=== PATIENT | male | born 1950 | race Caucasian/White ===

== ENCOUNTER 2019-10-30 09:16 | Emergency (ER) | payer MEDICARE, OTHER ==
[~2019-10-30] VITALS: Ht 189.2 cm; Wt 104.7 kg
--- NOTE | 2019-10-30 09:53 | PHYS DOC ---
Past History Past Medical History: A-Fib, CHF Smoking: Non-smoker Adult General Chief Complaint Chief Complaint: MECHANICAL FALL HPI HPI Patient is a 69-year-old male who presents to the emergency department for evaluation. He states he slipped in the shower this morning, and fell, primarily injuring his right forearm where he has some skin tears. He also has a skin tear on the dorsum of his right hand. He denies hitting his head, but does have some generalized neck pain and back discomfort. He denies any hip or lower extremity pain and is able to flex and extend his hips. He denies feeling dizzy or lightheaded prior to the fall. He does take Eliquis for history of atrial fibrillation. He normally walks with a walker, and uses a wheelchair for ambulation. He has no formal diagnosis of Parkinson's disease but suspects he might have it. Patient states his tetanus is up-to-date. Patient also states that he was bitten by his cat a few days ago in his right elbow area, in the area of his skin tears today and has had some soreness and pain.. Review of Systems Review of Systems Constitutional: Denies fever or chills [] Eyes: Denies change in visual acuity, redness, or eye pain [] HENT: Denies nasal congestion or sore throat [] Respiratory: Denies cough or shortness of breath [] Cardiovascular:The patient denies any shortness of breath, chest pain, palpitations, or orthopnea [] GI: Denies abdominal pain, nausea, vomiting, bloody stools or diarrhea [] : Denies dysuria or hematuria [] Musculoskeletal: Denies joint pain [] Integument: Denies rash or skin lesions [] Neurologic: Denies headache, focal weakness or sensory changes [] Endocrine: Denies polyuria or polydipsia [] All other systems were reviewed and found to be within normal limits, except as documented in this note. Physical Exam Physical Exam PHYSICAL EXAM: CONSTITUTIONAL: Well developed, well nourished HEAD: normocephalic, atraumatic EENT: PERRL, EOMI. Conjunctivae normal color, sclerae non-icteric; moist mucous membranes. NECK: Supple, there is mild diffuse tenderness to palpation of the cervical spine although range of motion is full. LUNGS: Lungs CTA, breathing even and unlabored. Normal air movement. HEART: Irregularly irregular rhythm, no murmur CHEST: No deformity; non-tender ABDOMEN: The abdomen is soft, and non-tender, no masses or bruits. EXTREM: There is tenderness to palpation and mild soft tissue swelling noted in the soft tissues of the proximal right forearm, near the elbow. There is some bony tenderness to palpation in this area. There is no warmth or erythema. There are several superficial skin tears present. There is also a skin tear on the dorsum of the right hand with some soft tissue swelling and tenderness to palpation. There is tenderness to palpation of the posterior aspect of the left calf, focally, in the area of a small hematoma, the remainder of the soft tissu es of the calf are nontender. Hips and pelvis are nontender with normal range of motion in the hips bilaterally. All extremities demonstrate Normal ROM, Normal pulses palpable in all extremities. There is no pedal edema. SKIN: No rash; no diaphoresis NEURO: Alert; normal speech and cognition; CN's grossly intact; strength grossly intact without focal deficit. There is cogwheel rigidity in the upper extremities. There is a flat facial expression, and an occasional mild tremor. BACK: No CVA TTP. There is mild tenderness to palpation to the mid and lower thoracic spine and lumbar spine. There is no step off or crepitus. EKG EKG [] Radiology/Procedures Radiology/Procedures PROCEDURE: CT HEAD AND CERVICAL SPINE WO CT HEAD AND CERVICAL SPINE WO Date: 10/30/2019 9:39 AM Clinical Indication: Fall, pain Comparison: None. Technique: 5 mm axial tomographic images were obtained of the head without contrast. These were viewed on brain and bone windows. Noncontrast CT of the cervical spine was performed. Sagittal and coronal reformats were performed and evaluated. One or more of the following dose reduction techniques were utilized: Automated exposure control (AEC), Adjustment of mA and/or kV according to patient size, Use of iterative reconstruction technique such as ASiR, CT scan done according to ALARA and image gently/image wisely HEAD FINDINGS: Mild generalized cerebral and cerebellar volume loss. Mild nonspecific periventricular hypoattenuation, most commonly seen with chronic small vessel ischemic disease. No intra- or extra-axial mass or fluid collection. No acute hemorrhage. The ventricles are normal in size, shape, and morphology. The toro-white matter junction is normal. The basilar cisterns are patent. Mild paranasal sinus mucosal thickening. The visualized portions of the orbits and globes are normal. The mastoid air cells are clear. No aggressive osseous lesion or fracture. CERVICAL SPINE FINDINGS: The cervical spine is normally aligned. No acute fracture. No aggressive lytic or blastic osseous lesions. Moderate multilevel degenerative disc space height loss. Multilevel mild and moderate spinal canal stenosis secondary to disc protrusions and marginal osteophytes. Multilevel mild and moderate neuroforaminal narrowing secondary to uncovertebral arthrosis. Multilevel mild and moderate facet arthrosis. The thyroid gland is normal. No cervical lymphadenopathy. The visualized aerodigestive tract is normal. The visualized portions of the lungs are clear. IMPRESSION: 1. No acute intracranial process. 2. No acute cervical spine fracture.[] PROCEDURE: HAND RIGHT 3V PROCEDURE: LUMBAR SPINE 2-3V, HAND RIGHT 3V, THORACIC SPINE 3V, ELBOW RIGHT 3V STUDY DATE: 10/30/2019 CLINICAL INDICATION / HISTORY: Acute upper back pain after a fall.. TECHNIQUE: Frontal and lateral views of the thoracic spine were obtained. A swimmer's lateral view was also obtained. COMPARISON: CT C-spine without IV contrast, obtained the same day. FINDINGS: Normal thoracic spinal alignment. There is mild loss of normal kyphosis with multilevel flowing osteophytes throughout the thoracic spine. Subtle anterior loss of height at T12 is present, age indeterminate. No fracture or malalignment is apparent. Soft tissues show pacemaker leads and calcified hilar lymph nodes. IMPRESSION: Age-indeterminate mild anterior loss of height at T12, potentially representing an acute anterior wedge compression fracture without findings of instability. Otherwise no evidence of fracture or subluxation in the thoracic spine. PROCEDURE: LUMBAR SPINE 2-3V, HAND RIGHT 3V, THORACIC SPINE 3V, ELBOW RIGHT 3V STUDY DATE: 10/30/2019 CLINICAL INDICATION / HISTORY: Acute lower back pain after a fall.. TECHNIQUE: 3 views of the lumbar spine COMPARISON: T-spine x-rays same day FINDINGS: Five lumbar segments are identified. Lumbar vertebral bodies are normal in height and alignment. Disc degenerative change at multiple levels is evident, most conspicuous at the lumbosacral junction. Bulky facet hypertrophic changes also present, likely resulting in moderate degrees of narrowing in the neural foramina at L3-L4 through L5-S1.. Visualized pedicles are intact.. IMPRESSION: No acute osseous abnormality shown in the lumbar spine by x-ray. PROCEDURE: LUMBAR SPINE 2-3V, HAND RIGHT 3V, THORACIC SPINE 3V, ELBOW RIGHT 3V STUDY DATE: 10/30/2019 CLINICAL INDICATION / HISTORY: Acute right hand pain after a fall.. TECHNIQUE: PA, lateral and oblique views of the right hand. COMPARISON: None FINDINGS: No fracture or dislocation is identified. The bone density is mildly demineralized.. The joint spaces are mildly narrowed and endplate osteophytic spurs are present most conspicuously in the interphalangeal joints. There are no erosions to suggest an inflammatory arthropathy. The soft tissues are unremarkable. IMPRESSION: Degenerative changes in the right hand with no acute osseous abnormality noted. PROCEDURE: LUMBAR SPINE 2-3V, HAND RIGHT 3V, THORACIC SPINE 3V, ELBOW RIGHT 3V STUDY DATE: 10/30/2019 CLINICAL INDICATION / HISTORY: Acute right elbow pain after a fall.. TECHNIQUE: Right Elbow 3 views COMPARISON: None FINDINGS: 3 views of the right elbow demonstrate a lucency over the medial epicondyle of uncertain significance. This could represent remote sequela of previous injury as no significant soft tissue swelling is identified. Otherwise there is no evidence of fracture, subluxation, or dislocation. Soft tissues unremarkable. IMPRESSION: No definite acute osseous abnormality in the right elbow with possible old fracture of the medial condyle noted. Correlate with the clinical exam and consider additional imaging such as with CT if clinically warranted. Course & Med Decision Making Course & Med Decision Making Pertinent Imaging studies reviewed. (See chart for details) []11:15 AM: The patient's condition remains stable. His gait is baseline at this time. He will be given antibiotics, Doxy and Flagyl, due to his penicillin allergy, to treat his Eye. I discussed wound care, the need for close PCP follow-up, and return precautions. On repeat exam the patient has no tenderness to palpation over the medial humeral condyle, is tenderness to palpation is mostly in the area of his wounds and cat bite on his proximal forearm. I discussed the importance of close PCP follow-up, as well as outpatient urology follow-up, as I suspect the patient has undiagnosed parkinsonism. Dragon Disclaimer Dragon Disclaimer This electronic medical record was generated, in whole or in part, using a voice recognition dictation system. Departure Departure: Impression: Primary Impression: Accidental fall Additional Impressions: Compression fracture Cat bite Skin tear Disposition: 01 HOME, SELF-CARE Condition: STABLE Patient Instructions: Animal Bite, Back, Compression Fracture, Fall Prevention and Home Safety, Parkinson's Disease, Skin Tear Care Scripts Metronidazole (FLAGYL) 500 Mg Tablet 1 TAB PO TID for p, #30 TAB Prov: MATHIEU VILLASENOR MD 10/30/19 Doxycycline Hyclate (DOXYCYCLINE HYCLATE) 100 Mg Capsule 1 CAP PO BID for -, #20 CAP Prov: MATHIEU VILLASENOR MD 10/30/19 Problem Qualifiers MATHIEU VILLASENOR MD Oct 30, 2019 09:53
[2019-10-30] MEDS ORDERED: BACITRACIN ZINC TOPICAL OINT PACKET. TP ONE (10:00)
[2019-10-30] MEDS ORDERED: HYDROcodone/APAP 5/325MG 1 TAB TABLET PO ONE (10:30)
--- NOTE | 2019-10-30 10:42 | RAD ---
CT HEAD AND CERVICAL SPINE WO Date: 10/30/2019 9:39 AM Clinical Indication: Fall, pain Comparison: None. Technique: 5 mm axial tomographic images were obtained of the head without contrast. These were viewed on brain and bone windows. Noncontrast CT of the cervical spine was performed. Sagittal and coronal reformats were performed and evaluated. One or more of the following dose reduction techniques were utilized: Automated exposure control (AEC), Adjustment of mA and/or kV according to patient size, Use of iterative reconstruction technique such as ASiR, CT scan done according to ALARA and image gently/image wisely HEAD FINDINGS: Mild generalized cerebral and cerebellar volume loss. Mild nonspecific periventricular hypoattenuation, most commonly seen with chronic small vessel ischemic disease. No intra- or extra-axial mass or fluid collection. No acute hemorrhage. The ventricles are normal in size, shape, and morphology. The toro-white matter junction is normal. The basilar cisterns are patent. Mild paranasal sinus mucosal thickening. The visualized portions of the orbits and globes are normal. The mastoid air cells are clear. No aggressive osseous lesion or fracture. CERVICAL SPINE FINDINGS: The cervical spine is normally aligned. No acute fracture. No aggressive lytic or blastic osseous lesions. Moderate multilevel degenerative disc space height loss. Multilevel mild and moderate spinal canal stenosis secondary to disc protrusions and marginal osteophytes. Multilevel mild and moderate neuroforaminal narrowing secondary to uncovertebral arthrosis. Multilevel mild and moderate facet arthrosis. The thyroid gland is normal. No cervical lymphadenopathy. The visualized aerodigestive tract is normal. The visualized portions of the lungs are clear. IMPRESSION: 1. No acute intracranial process. 2. No acute cervical spine fracture. Electronically signed by: Dustin Hunter MD (10/30/2019 10:39 AM) [id number]
--- NOTE | 2019-10-30 11:00 | RAD ---
PROCEDURE: LUMBAR SPINE 2-3V, HAND RIGHT 3V, THORACIC SPINE 3V, ELBOW RIGHT 3V STUDY DATE: 10/30/2019 CLINICAL INDICATION / HISTORY: Acute upper back pain after a fall.. TECHNIQUE: Frontal and lateral views of the thoracic spine were obtained. A swimmer's lateral view was also obtained. COMPARISON: CT C-spine without IV contrast, obtained the same day. FINDINGS: Normal thoracic spinal alignment. There is mild loss of normal kyphosis with multilevel flowing osteophytes throughout the thoracic spine. Subtle anterior loss of height at T12 is present, age indeterminate. No fracture or malalignment is apparent. Soft tissues show pacemaker leads and calcified hilar lymph nodes. IMPRESSION: Age-indeterminate mild anterior loss of height at T12, potentially representing an acute anterior wedge compression fracture without findings of instability. Otherwise no evidence of fracture or subluxation in the thoracic spine. PROCEDURE: LUMBAR SPINE 2-3V, HAND RIGHT 3V, THORACIC SPINE 3V, ELBOW RIGHT 3V STUDY DATE: 10/30/2019 CLINICAL INDICATION / HISTORY: Acute lower back pain after a fall.. TECHNIQUE: 3 views of the lumbar spine COMPARISON: T-spine x-rays same day FINDINGS: Five lumbar segments are identified. Lumbar vertebral bodies are normal in height and alignment. Disc degenerative change at multiple levels is evident, most conspicuous at the lumbosacral junction. Bulky facet hypertrophic changes also present, likely resulting in moderate degrees of narrowing in the neural foramina at L3-L4 through L5-S1.. Visualized pedicles are intact.. IMPRESSION: No acute osseous abnormality shown in the lumbar spine by x-ray. PROCEDURE: LUMBAR SPINE 2-3V, HAND RIGHT 3V, THORACIC SPINE 3V, ELBOW RIGHT 3V STUDY DATE: 10/30/2019 CLINICAL INDICATION / HISTORY: Acute right hand pain after a fall.. TECHNIQUE: PA, lateral and oblique views of the right hand. COMPARISON: None FINDINGS: No fracture or dislocation is identified. The bone density is mildly demineralized.. The joint spaces are mildly narrowed and endplate osteophytic spurs are present most conspicuously in the interphalangeal joints. There are no erosions to suggest an inflammatory arthropathy. The soft tissues are unremarkable. IMPRESSION: Degenerative changes in the right hand with no acute osseous abnormality noted. PROCEDURE: LUMBAR SPINE 2-3V, HAND RIGHT 3V, THORACIC SPINE 3V, ELBOW RIGHT 3V STUDY DATE: 10/30/2019 CLINICAL INDICATION / HISTORY: Acute right elbow pain after a fall.. TECHNIQUE: Right Elbow 3 views COMPARISON: None FINDINGS: 3 views of the right elbow demonstrate a lucency over the medial epicondyle of uncertain significance. This could represent remote sequela of previous injury as no significant soft tissue swelling is identified. Otherwise there is no evidence of fracture, subluxation, or dislocation. Soft tissues unremarkable. IMPRESSION: No definite acute osseous abnormality in the right elbow with possible old fracture of the medial condyle noted. Correlate with the clinical exam and consider additional imaging such as with CT if clinically warranted. Electronically signed by: Ni Iyer MD (10/30/2019 10:57 AM) [facility]
[2019-10-30] MEDS ORDERED: DOXY100C2 PO (11:18)
[2019-10-30] MEDS ORDERED: METR500T PO (11:18)
[2019-10-30 11:50] VITALS: BP 105/70
== END 2019-10-30 11:50 | disposition home or self-care (01) ==
LOC: ER 09:16
DX: S22.080A Wedge compression fracture of T11-T12 vertebra, initial encounter for closed fracture (principal); S51.811A Laceration without foreign body of right forearm, initial encounter; S61.411A Laceration without foreign body of right hand, initial encounter; S51.051A Open bite, right elbow, initial encounter; I48.91 Unspecified atrial fibrillation; I50.9 Heart failure, unspecified; W55.01XA Bitten by cat, initial encounter; W01.0XXA Fall on same level from slipping, tripping and stumbling without subsequent striking against object, initial encounter; Y93.E1 Activity, personal bathing and showering; Y92.89 Other specified places as the place of occurrence of the external cause; Y99.8 Other external cause status
CPT/HCPCS: 70450; 72072; 72100; 72125; 73080; 73130; 99285